=== PATIENT | female | born 1950 | race American Indian/Alaskan Native ===

== ENCOUNTER 2016-06-12 08:20 | Day surgery (SDC) | payer MEDICARE ==
--- NOTE | 2016-06-11 21:29 | History and Physical Report ---
History of Present Illness Date of examination: 06/12/16 Chief complaint: Right vulvar mass History of present illness: Pt is a 66 year old -[place] female who presents with dyspareunia and right labial mass. She desires surgical treatment. She is scheduled to have a joint procedure including excision of her labial mass and a ventral hernia repair by Dr Santhosh Jones. Past History Past Medical History: hypertension (Amlodipine 10 mg PO daily ) Past Surgical History: appendectomy, tonsillectomy, other (hernia repair ) Family/Genetic History: diabetes, hypertension, cancer Social history: no significant social history, smoking Medications and Allergies Allergies Allergy/AdvReac Type Severity Reaction Status Date / Time Penicillins Allergy SWEATS, Unverified 06/11/16 10:28 UNABLE TO BREATH Home Medications Medication Instructions Recorded Confirmed Last Taken Type Aspirin [Adult Low Dose Aspirin EC] 81 mg PO DAILY 06/11/16 06/11/16 Unknown History amLODIPine [Norvasc] 5 mg PO DAILY 06/11/16 06/11/16 Unknown History Active Meds: Active Medications Famotidine (Pepcid) 20 mg PO PREOP NR Stop: 06/12/16 23:59 Sodium Chloride (Nacl 0.9% 1000 Ml) 1,000 mls @ 100 mls/hr IV DIRECT JONAH Midazolam HCl (Versed) 2 mg IV PREOP NR Stop: 06/12/16 23:59 Review of Systems All systems: negative - Physical Exam Breasts: Positive: deferred Cardiovascular: Regular rate Lungs: Positive: Clear to auscultation Abdomen: Positive: soft Extremities: Positive: normal Results All other labs normal. Assessment and Plan A: Ventral Hernia Right labial mass Hypertension P: Proceed with excision of right labial mass and other indicated procedures and ventral hernia repair by Dr Jones.
[~2016-06-12 08:20] MED LIST: CLEOCIN 600 MG/50 mL 600 MG/50 ML BAG IV NR; GARAMYCIN IV SCH; GARAMYCIN/NS 120MG/100ML 120 MG/100 ML BAG IV ONE; NACL 0.9% 1000 ML 1,000 ML IV SCH; PEPCID PO NR; VERSED IV NR
[2016-06-12] MEDS ORDERED: ZOFRAN IV PRN ×2 (09:01)
[2016-06-12] MEDS ORDERED: NORCO 5/325 PO PRN (09:01)
--- NOTE | 2016-06-12 09:01 | Anesthesia Day of Surgery ---
Anesthesia Day of Surgery - Day of Surgery Patient Examined: Yes Patient H&P Reviewed: Yes Patient is NPO: Yes
--- NOTE | 2016-06-12 09:01 | Anesthesia Consultation ---
Anesthesia Consult and Med Hx Date of service: 06/12/16 - Airway Anesthetic Teeth Evaluation: Good, Partials ROM Head & Neck: Adequate Mental/Hyoid Distance: Adequate Mallampati Class: Class II Intubation Access Assessment: Probably Good - Pulmonary Exam CTA: Yes - Cardiac Exam Cardiac Exam: RRR - Pre-Operative Health Status ASA Pre-Surgery Classification: ASA2 Proposed Anesthetic Plan: General - Pulmonary Hx Smoking: Yes (1/2 ppd) - Cardiovascular System Hx Hypertension: Yes (started meds 2 weeks ago) - Central Nervous System Hx Psychiatric Problems: No - Other Systems Hx Alcohol Use: Yes (occas) Hx Cancer: No
[2016-06-12] MEDS ORDERED: ZEMURON IV ONE (09:09)
[2016-06-12] MEDS ORDERED: SUBLIMAZE ONE (09:09)
[2016-06-12] MEDS ORDERED: DECADRON ONE (09:09)
[2016-06-12] MEDS ORDERED: DIPRIVAN 10 MG/ML IV ONE (09:09)
[2016-06-12] MEDS ORDERED: ZOFRAN ONE (09:10)
[2016-06-12] MEDS ORDERED: XYLOCAINE MPF 2% ONE (09:10)
[2016-06-12 10:11] LABS: Basophils % (Auto) 0.5 % (0.0-1.8); Eosinophils % (Auto) 2.8 % (0.0-4.3); Hematocrit 39.3 % (30.3-42.9); Hemoglobin 12.9 gm/dl (10.1-14.3); Mean Corpuscular HGB Conc 33 % (30-34); Mean Corpuscular Hemoglobin 31 pg (28-32); Mean Corpuscular Volume 94 fl (79-97); Platelet Count 229 K/mm3 (140-440); Red Blood Count 4.18 M/mm3 (3.65-5.03); Red Cell Distribution Width 14.4 % (13.2-15.2); White Blood Count 8.1 K/mm3 (4.5-11.0)
[2016-06-12] MEDS ORDERED: GARAMYCIN IV SCH (10:15)
[2016-06-12] MEDS ORDERED: GARAMYCIN/NS 120MG/100ML 120 MG/100 ML BAG IV ONE (11:00)
[2016-06-12] MEDS ORDERED: CLEOCIN 600 MG/50 mL 600 MG/50 ML BAG IV NR (11:00)
--- NOTE | 2016-06-12 11:04 | Operative Report ---
Operative Report Operative Report: Date of Procedure: June 12, 2016 Preoperative Diagnosis: Right labial cyst Postoperative Diagnosis: Right labial cyst Procedure: Incision and drainage of right labial cyst Surgeon: Lisbet Martino MD Anesthesia: GETA Findings: 1 cm cyst in right labum minorum filled with chocolate-covered paste Atrophic vulva EBL: minimal Urine output: 200 mL prior to the procedure Drains: None Complications: None. Counts correct x 2 Disposition: Continuation of dual surgery (ventral hernia repair) Operation in Detail: After the risks, benefits, alternatives, and complications of the procedure were splayed to the patient she gave informed consent for the procedure. She was subsequently taken to the operating room with IV noted to be running well and placed in the dorsal supine position. General endotracheal anesthesia was then induced without difficulty. The patient was then placed in the dorsal lithotomy position and prepped and draped in normal sterile fashion. A timeout was performed. A red rubber catheter was used to drain the bladder of 200 mL of yellow clear urine. A 1 cm cyst was noted on the right labium minora. The overlying skin was injected with half a milliliter of half percent Marcaine solution. A #15 blade was used to incise the skin overlying the cyst. Upon entry into the skin a thick paste like dark brown substance emerged from the incision. It was collected and sent for pathologic diagnosis. The cyst cavity was then irrigated copiously with normal saline. The cyst cavity was cauterized with Bovie cautery. The incision was reapproximated with a [id number] of 4-0 Vicryl. Hemostasis was noted and the procedure was ended. At this time the patient was repositioned and reprepped for the ventral hernia repair. Please see operative note by Dr. Jones for details of this portion of the procedure.
[2016-06-12] MEDS ORDERED: DILAUDID ONE (11:18)
--- NOTE | 2016-06-12 11:23 | Short Stay Summary ---
Short Stay Documentation Date of service: 06/12/16 - History Social history: no significant social history, smoking - Allergies and Medications Current Medications: Allergies Penicillins Allergy (Verified 06/11/16 21:29) SWEATS, UNABLE TO BREATH Home Medications Medication Instructions Recorded Confirmed Last Taken Type Aspirin [Adult Low Dose Aspirin EC] 81 mg PO DAILY 06/11/16 06/11/16 Unknown History amLODIPine [Norvasc] 5 mg PO DAILY 06/11/16 06/11/16 Unknown History Ibuprofen [Motrin] 800 mg PO Q8HR PRN #30 tablet 06/12/16 Unknown Rx oxyCODONE /ACETAMINOPHEN [Percocet 1 tab PO Q6HR PRN #40 tablet 06/12/16 Unknown Rx 5/325] Active Medications Acetaminophen/Hydrocodone Bitart ([place] 5/325) 2 each PO ONCE PRN PRN Reason: Pain, Moderate (4-6) Stop: 06/12/16 16:00 Famotidine (Pepcid) 20 mg PO PREOP NR Stop: 06/12/16 23:59 Last Admin: 06/12/16 09:35 Dose: 20 mg Gentamicin Sulfate (Garamycin) 120 mg 1.5 mg/kg (120 mg) IV PREOP JONAH PRN Reason: Protocol Stop: 06/12/16 23:59 Hydromorphone HCl (Dilaudid) 0.5 mg IV Q10MIN PRN PRN Reason: Pain , Severe (7-10) Stop: 06/12/16 16:00 Sodium Chloride (Nacl 0.9% 1000 Ml) 1,000 mls @ 100 mls/hr IV DIRECT JONAH Last Admin: 06/12/16 09:36 Dose: 100 mls/hr Clindamycin HCl (Cleocin 600 Mg/50 Ml) 600 mg in 50 mls @ 100 mls/hr IV PREOP NR PRN Reason: Protocol Stop: 06/12/16 11:29 Gentamicin Sulfate/Sodium Chloride (Garamycin/Ns 120mg/100ml) 120 mg in 100 mls @ 200 mls/hr IV PREOP ONE Stop: 06/12/16 11:29 Midazolam HCl (Versed) 2 mg IV PREOP NR Stop: 06/12/16 23:59 Last Admin: 06/12/16 09:35 Dose: 2 mg Ondansetron HCl (Zofran) 8 mg IV ONCE PRN PRN Reason: Nausea And Vomiting Stop: 06/12/16 16:00 Ondansetron HCl (Zofran) 4 mg IV ONCE PRN PRN Reason: Nausea And Vomiting Stop: 06/12/16 16:00 - Physical exam Breasts: deferred - Brief post op/procedure progress note Date of procedure: 06/12/16 Pre-op diagnosis: Right labial cyst, Ventral Hernia Repair Post-op diagnosis: same Procedure: 1) Incision and drainage of right labial cyst 2) Ventral Hernia Repair by Dr Jones Anesthesia: GETA Findings: 1) Surgeon: ELOISE CASPER Estimated blood loss: minimal Pathology: list (right labial cyst contents) Specimen disposition: to lab Condition: stable - Hospital course Hospital course: Patient underwent incision and drainage of right labial cyst and ventral hernia repair which she tolerated well. She was observed in the PACU until she met discharge criteria. - Disposition Condition at discharge: Stable Disposition: DISCHARGED TO HOME OR SELFCARE - Discharge Diagnoses (1) Ventral hernia Status: Acute Qualifiers: Obstruction and gangrene presence: without obstruction or gangrene Qualified Code(s): K43.9 - Ventral hernia without obstruction or gangrene (2) Labial cyst Status: Acute (3) Hypertension Status: Acute Qualifiers: Hypertension type: unspecified secondary hypertension Qualified Code(s): I15.9 - Secondary hypertension, unspecified; I15 - Secondary hypertension (4) Tobacco use Status: Acute Short Stay Discharge Plan Activity: other (Nothing in vagina x 4 wks; No heavy lifting greater than 15 pounds ) Weight Bearing Status: Full Weight Bearing Diet: regular Special Instructions: other (Keep incisions clean and dry ) Follow up with: HARMONY COLBY MD [Primary Care Provider] - 7 Days ELOISE CASPER MD [Staff Physician] - 06/19/16 (postop ) Prescriptions: Ibuprofen [Motrin] 800 mg PO Q8HR PRN #30 tablet PRN Reason: Pain oxyCODONE /ACETAMINOPHEN [Percocet 5/325] 1 tab PO Q6HR PRN #40 tablet PRN Reason: Pain
[2016-06-12] MEDS ORDERED: NACL 0.9% IR ONE (11:28)
[2016-06-12] MEDS ORDERED: MARCAINE 0.5% INFILTRATI ONE (11:28)
[2016-06-12] MEDS ORDERED: NEOSTIGMINE ONE (11:37)
[2016-06-12] MEDS ORDERED: ROBINUL ONE (11:37)
[2016-06-12] MEDS: DILAUDID IV PRN ×3 (12:05→12:40)
[2016-06-12 15:46] LABS: Alanine Aminotransferase 20 units/L (7-56); Albumin 3.7 g/dL (3.9-5); Albumin/Globulin Ratio 1.1 %; Alkaline Phosphatase 62 units/L (35-129); Anion Gap 20 mmol/L; Bilirubin,Total 0.2 mg/dL (0.1-1.2); Blood Urea Nitrogen 9 mg/dL (7-17); Carbon Dioxide 21 mmol/L (22-30); Chloride 104.5 mmol/L (98-107); Glucose 143 mg/dL (65-100); Potassium 3.8 mmol/L (3.6-5.0); Sodium 142 mmol/L (137-145); Total Protein 7.2 g/dL (6.3-8.2)
[2016-06-12 16:05] VITALS: BP 144/86
--- NOTE | 2016-06-12 17:21 | Operative Report ---
PREOPERATIVE DIAGNOSIS: Umbilical hernia. POSTOPERATIVE DIAGNOSES: 1. Umbilical hernia. 2. Dense adhesions between the omentum and the anterior abdominal wall. SURGERIES: 1. Laparoscopic repair of umbilical hernia with application of medium sized Ventralex graft. 2. Lysis of adhesions between the omentum and the anterior abdominal wall. ANESTHESIA: General. BLOOD LOSS: Minimal. FINDINGS: The patient had a defect in the umbilical area that is about 2 x 2 cm. I was able to cake pictures of that and then a Ventralex graft was inserted in the area, tacked all around in the usual fashion. DESCRIPTION OF PROCEDURE: With the patient in the supine position, prepped and draped in usual fashion, I made a small incision in the left mid abdomen. With the Veress needle, I was able to do CO2 pressure of 15, for which #5 trocar was inserted. With the use of the camera, I was able to introduce another trocar, #5, in the left upper abdomen. I evaluated the situation, the patient had dense adhesions between the omentum and the anterior abdominal wall. These were lysed slowly with EndoShears and Bovie. After finishing this, I could see the hernial defect easily, thus a medium sized was inserted into the area and tacked all around in 2 rows in the usual fashion. Then, the stitch was applied to 2 ends of the graft using for that purpose a 2-0 Vicryl and the skin with 4-0 Vicryl and bandage. The patient was then transferred to the recovery room in good condition, going to apply an abdominal binder. JOB# [id number] JOANN/JUNAID
== END 2016-06-12 15:55 | disposition home or self-care (01) ==
LOC: OR 08:20
PROVIDERS: ATTEND Obstetrics & Gynecology
DX: K42.9 Umbilical hernia without obstruction or gangrene (principal); N73.6 Female pelvic peritoneal adhesions (postinfective); N90.7 Vulvar cyst; N90.5 Atrophy of vulva; I10 Essential (primary) hypertension; F17.210 Nicotine dependence, cigarettes, uncomplicated; M19.90 Unspecified osteoarthritis, unspecified site; Z72.89 Other problems related to lifestyle; Z98.890 Other specified postprocedural states; Z79.899 Other long term (current) drug therapy; Z82.49 Family history of ischemic heart disease and other diseases of the circulatory system; Z83.3 Family history of diabetes mellitus; Z80.9 Family history of malignant neoplasm, unspecified
CPT/HCPCS: 36415; 49329; 49652; 56405; 80053; 82962; 85025; 86850; 86900; 86901; 88304; C1781; J1100; J1170; J1580; J2250; J2405; J2704; J2710; J3010; J7030